=== PATIENT | male | born 1970 | race Two or more races ===

== ENCOUNTER 2019-05-28 09:42 | Inpatient (IN) | payer OTHER ==
[~2019-05-28] VITALS: Ht 175.3 cm; Wt 78.1 kg
[~2019-05-28 09:42] MED LIST: ATOR20TA37 PO; BACITRACIN 50,000 UNIT ONE; EPINEPHRINE 1 MG/ML, 1ML ONE; LOSA25TA25 PO; THROMBIN 5,000 UNIT VIAL TP ONE; VANCOMYCIN 1,000 MG ONE
[2019-05-28] MEDS ORDERED: LACTATED RINGERS 1,000 ML IV SCH (10:14)
[2019-05-28 10:17] VITALS: BP 148/89
[2019-05-28] MEDS ORDERED: MIDAZOLAM 1 MG/ML, 2ML ONE (11:23)
[2019-05-28] MEDS ORDERED: FENTANYL PF 250 MCG/5ML ONE (11:23)
[2019-05-28] MEDS ORDERED: DEXAMETHASONE 4 MG/ML, 1ML ONE (12:31)
[2019-05-28] MEDS ORDERED: SUCCINYLCHOLINE 20 MG/ML, 10ML ONE (12:31)
[2019-05-28] MEDS ORDERED: METOPROLOL 1 MG/ML, 5ML ONE (12:31)
[2019-05-28] MEDS ORDERED: ROCURONIUM 10 MG/ML,10ML ONE (12:31)
[2019-05-28] MEDS ORDERED: CEFAZOLIN 1,000 MG ONE (12:31)
[2019-05-28] MEDS ORDERED: PROPOFOL 10 MG/ML, 20ML ONE (12:31)
[2019-05-28] MEDS ORDERED: ONDANSETRON 2MG/ML, 2ML ONE ×2 (12:31→14:56)
[2019-05-28] MEDS ORDERED: BUPIVACAINE/PF 0.5% INFIL ONE (13:09)
[2019-05-28] MEDS ORDERED: THROMBIN 5,000 UNIT VIAL TP ONE (13:10)
[2019-05-28] MEDS ORDERED: PROMETHAZINE 25 MG/ML, 1ML IV PRN (13:30)
[2019-05-28] MEDS ORDERED: OXYcodone 5 MG/5 ML ORAL.SOL UDC PO PRN (13:30)
[2019-05-28] MEDS ORDERED: LABETALOL 5MG/ML, 20ML IV PRN (13:30)
[2019-05-28] MEDS ORDERED: METOCLOPRAMIDE 5 MG/ML, 2ML IV PRN (13:30)
[2019-05-28] MEDS ORDERED: MEPERIDINE/PF 25MG/0.5ML IVPush PRN (13:30)
[2019-05-28] MEDS ORDERED: KETOROLAC 30 MG/1 ML IV PRN (13:30)
[2019-05-28] MEDS ORDERED: ONDANSETRON 2MG/ML, 2ML IVPush PRN (13:30)
[2019-05-28] MEDS ORDERED: hydrALAzine 20 MG/ML, 1ML IV PRN (13:30)
[2019-05-28] MEDS ORDERED: ALBUTEROL SULFATE 2.5 MG/3 ML NPPB PRN (13:30)
[2019-05-28] MEDS ORDERED: FENTANYL PF 100 MCG/2ML ONE (14:59)
[2019-05-28] MEDS ORDERED: OXYcodone 5 MG/5 ML ORAL.SOL UDC ONE (14:59)
[2019-05-28] MEDS: FENTANYL PF 100 MCG/2ML IV PRN ×2 (15:00→15:10)
[2019-05-28] MEDS ORDERED: HYDROmorphone 1 MG/ML, 1ML VIAL ONE (15:24)
[2019-05-28] MEDS: HYDROmorphone 1 MG/ML, 1ML INJ IV PRN ×2 (15:30→15:45)
[2019-05-28] MEDS ORDERED: METHOCARBAMOL 1,000 MG in DEXTROSE 5% 100 ML IV ONE (15:30)
[2019-05-28] MEDS ORDERED: PROMETHAZINE 25 MG/ML, 1ML ONE (16:10)
[2019-05-28 16:39] VITALS: BP 128/80
[2019-05-28] MEDS ORDERED: DIPHENHYDRAMINE 50 MG/ML, 1ML IVPush PRN (17:30)
[2019-05-28] MEDS ORDERED: BISACODYL 10 MG SUPP PR PRN (17:30)
[2019-05-28] MEDS ORDERED: HYDROmorphone 2 MG/ML, 1ML IVPush PRN (17:30)
[2019-05-28] MEDS ORDERED: MAGNESIUM HYDROXIDE 8%, 30ML UDC PO PRN (17:30)
[2019-05-28] MEDS ORDERED: ONDANSETRON 2MG/ML, 2ML IV PRN (17:30)
[2019-05-28] MEDS ORDERED: HYDROcodone/APAP 10/325 MG TABLET PO PRN (17:30)
[2019-05-28] MEDS ORDERED: LORazepam 1MG TABLET PO PRN (17:30)
[2019-05-28] MEDS ORDERED: PROMETHAZINE 25 MG/ML, 1ML IM PRN (17:30)
[2019-05-28] MEDS: D5%-0.9% NACL+KCL 20MEQ 1,000 ML IV SCH (17:35)
[2019-05-28 19:23] VITALS: BP 134/81
[2019-05-28] MEDS: HYDROcodone/APAP 5/325 TABLET PO PRN (20:39)
[2019-05-28] MEDS: CEFAZOLIN PMX 1GM/50ML 50 ML IVPB SCH (20:40)
[2019-05-28] MEDS ORDERED: ZOLPIDEM 5MG TABLET PO PRN (21:00)
[2019-05-28] MEDS ORDERED: ATORVASTATIN 20 MG TABLET PO SCH (21:00)
[2019-05-29 00:10] VITALS: BP 115/70
[2019-05-29] MEDS: METHOCARBAMOL 750 MG TABLET PO SCH ×2 (00:27→08:55)
[2019-05-29] MEDS: HYDROcodone/APAP 5/325 TABLET PO PRN ×2 (00:27→04:35)
[2019-05-29] MEDS: D5%-0.9% NACL+KCL 20MEQ 1,000 ML IV SCH (01:34)
[2019-05-29 03:33] VITALS: BP 112/70
[2019-05-29] MEDS: CEFAZOLIN PMX 1GM/50ML 50 ML IVPB SCH (04:34)
[2019-05-29 04:50] LABS: BASOPHILS # (AUTO) 0.03 x10^3/uL (0-0.1); BASOPHILS % (AUTO) 0 % (0-1); EOSINOPHILS # (AUTO) 0.01 x10^3/uL (0-0.4); EOSINOPHILS % (AUTO) 0 % (1-7); LYMPHOCYTES # (AUTO) 1.83 x10^3/uL (1-3.4); LYMPHOCYTES % (AUTO) 18 % (22-44); MD NO; MEAN CORPUSCULAR HEMOGLOBIN 29.8 pg (27.5-34.5); MEAN CORPUSCULAR HGB CONC 33.1 g/dL (33.2-36.2); MEAN CORPUSCULAR VOLUME 90.2 fL (81-97); MEAN PLATELET VOLUME 7.8 fL (7.4-10.4); MONOCYTES # (AUTO) 0.64 x10^3/uL (0.2-0.8); MONOCYTES % (AUTO) 6 % (2-9); NEUTROPHILS # (AUTO) 7.67 x10^3/uL (1.8-6.8); NEUTROPHILS % (AUTO) 75 % (42-75); PLATELET COUNT 209 x10^3/uL (130-400); RED BLOOD COUNT 4.73 x10^6/uL (4.38-5.82); RED CELL DISTRIBUTION WIDTH 13.1 % (9.4-14.8)
[2019-05-29 05:02] LABS: ANION GAP 6 mmol/L (5-15); CALCIUM 8.1 mg/dL (8.5-10.1); CHLORIDE 108 mmol/L (98-107)
[2019-05-29 05:03] LABS: CREATININE 0.84 mg/dL (0.7-1.3)
[2019-05-29] MEDS ORDERED: ENOXAPARIN 40 MG/0.4 ML SQ SCH (06:00)
[2019-05-29 07:31] VITALS: BP 122/78
[2019-05-29] MEDS: LOSARTAN 25MG TABLET PO SCH ×2 (08:56→10:07)
[2019-05-29] MEDS ORDERED: SENNA/DOCUSATE TABLET PO SCH (09:00)
[2019-05-29] MEDS ORDERED: HYDR-36 PO (09:35)
[2019-05-29] MEDS ORDERED: CYCL-259 PO (09:36)
[2019-05-29 10:05] VITALS: BP 136/85
== END 2019-05-29 11:35 | disposition home or self-care (01) | DRG 455 ==
LOC: OUT 09:42 → 4NE 16:50 → OUT 16:53 → DCLOUNGE 05-29 11:21
PROVIDERS: ADMIT Neurological Surgery; ATTEND Neurological Surgery
PROC: 0SG3071 Fusion of Lumbosacral Joint with Autologous Tissue Substitute, Posterior Approach, Posterior Column, Open Approach (ICD-10-PCS; 2019-05-28)
PROC: 01NB0ZZ Release Lumbar Nerve, Open Approach (ICD-10-PCS; 2019-05-28)
PROC: 01NR0ZZ Release Sacral Nerve, Open Approach (ICD-10-PCS; 2019-05-28)
PROC: 0SB40ZZ Excision of Lumbosacral Disc, Open Approach (ICD-10-PCS; 2019-05-28)
PROC: 0SG30AJ Fusion of Lumbosacral Joint with Interbody Fusion Device, Posterior Approach, Anterior Column, Open Approach (ICD-10-PCS; principal; 2019-05-28 12:00)
DX: M48.07 Spinal stenosis, lumbosacral region (principal); M51.16 Intervertebral disc disorders with radiculopathy, lumbar region; M51.37 Other intervertebral disc degeneration, lumbosacral region; I10 Essential (primary) hypertension; E78.00 Pure hypercholesterolemia, unspecified
CPT/HCPCS: 36415; 72100; S0020; 80048; 85025; C1713; C1767; C1776; G0378; J0171; J0690; J1100; J1170; J1650; J2250; J2405; J2550; J2704; J3010; J3370; C1763; C1769; J0330; J2800; J3480; J7120

== ENCOUNTER 2020-07-05 10:54 | Emergency (ER) | payer OTHER ==
[~2020-07-05] VITALS: Ht 177.8 cm; Wt 73.8 kg
[~2020-07-05 10:54] MED LIST changes: -BACITRACIN 50,000 UNIT ONE; +CYCL-259 PO; -EPINEPHRINE 1 MG/ML, 1ML ONE; +HYDR-3246 PO; -THROMBIN 5,000 UNIT VIAL TP ONE; -VANCOMYCIN 1,000 MG ONE
[2020-07-05] MEDS ORDERED: SODIUM CHLORIDE 0.9% 1,000ML IVBOLUS ONE (11:30)
[2020-07-05] MEDS ORDERED: MECLIZINE CHEWABLE 25 MG TAB PO ONE (11:30)
[2020-07-05] MEDS ORDERED: ONDANSETRON 2MG/ML, 2ML IVPush ONE (11:30)
[2020-07-05] MEDS ORDERED: HYDROmorphone 1 MG/ML, 1ML INJ IV ONE (11:30)
[2020-07-05] MEDS ORDERED: MECLIZINE CHEWABLE 25 MG TAB ONE (11:33)
[2020-07-05] MEDS ORDERED: ONDANSETRON 2MG/ML, 2ML ONE (11:33)
[2020-07-05] MEDS ORDERED: HYDROmorphone 1 MG/ML, 1ML INJ ONE (11:33)
--- NOTE | 2020-07-05 11:41 | NUR ---
PIV PLACED, LABS DRAWN. IVF RUNNING. MEDS ADMIN PER AUG. XRAY COMPLETE. EKG DONE. PT AWARE OF NEED FOR URINE SAMPLE.
--- NOTE | 2020-07-05 12:11 | NUR ---
PT AMBULATED TO RESTROOM WITH STEADY GAIT TO PROVIDE URINE SAMPLE. UA COLLECTED AND SENT WITH PLATEN PRESS OPERATOR.
[2020-07-05 12:18] LABS: MICROSCOPIC NOT IND
[2020-07-05 12:23] LABS: BASOPHILS % (AUTO) 0 % (0-1); EOSINOPHILS % (AUTO) 0 % (1-7); LYMPHOCYTES % (AUTO) 17 % (22-44); MD NO; MEAN CORPUSCULAR HEMOGLOBIN 29.5 pg (27.5-34.5); MEAN CORPUSCULAR HGB CONC 34.1 g/dL (33.2-36.2); MEAN PLATELET VOLUME 8.1 fL (7.4-10.4); MONOCYTES % (AUTO) 3 % (2-9); NEUTROPHILS % (AUTO) 81 % (42-75); PLATELET COUNT 239 x10^3/uL (130-400); RED BLOOD COUNT 5.57 x10^6/uL (4.38-5.82); RED CELL DISTRIBUTION WIDTH 13.4 % (9.4-14.8)
[2020-07-05 12:28] LABS: ALBUMIN 4.2 g/dL (3.4-5.0); ANION GAP 4 mmol/L (5-15); CHLORIDE 104 mmol/L (98-107)
--- NOTE | 2020-07-05 12:34 | NUR ---
MD AT BEDSIDE TO UPDATE PT ON POC.
[2020-07-05 12:35] LABS: CREATININE 1.06 mg/dL (0.7-1.3); TROPONIN I < 0.015 ng/mL (0.000-0.045)
--- NOTE | 2020-07-05 12:54 | NUR ---
MUMTAZD TO CONSULT WITH NEUROSURGERY.
--- NOTE | 2020-07-05 12:57 | NUR ---
MUMTAZD AT BEDSIDE TO UPDATE PT ON CONSULT. N/O RECEIVED FOR MRI.
[2020-07-05] MEDS ORDERED: SODIUM CHLORIDE FLUSH 10ML SYR IVF PRN (13:30)
--- NOTE | 2020-07-05 13:42 | NUR ---
PT AT MRI.
[2020-07-05] MEDS ORDERED: GADOTERATE 7.5 MMOL/15 ML VIAL ONE (13:44)
--- NOTE | 2020-07-05 14:40 | NUR ---
REPORT GIVEN TO CASSIDY VU.
--- NOTE | 2020-07-05 15:22 | NUR ---
KOFFI RN: PT RESTING IN ROOM. FAMLIY AT BEDSIDE. VS STABLE. CALL LIGHT IN PLACE.
--- NOTE | 2020-07-05 16:15 | NUR ---
HOSPITALIST OK FOR PT TO EAT. DIET TRAY ORDERED.
--- NOTE | 2020-07-05 16:34 | NUR ---
Break RN note: Awaiting arrival of meal tray. Pt resting in bed, BORA.
--- NOTE | 2020-07-05 17:13 | NUR ---
MEAL TRAY DELIVERED.
--- NOTE | 2020-07-05 17:34 | NUR ---
GAVE REPORT TO HONG FROM [facility]. PT ACCEPTED. AWAITING BED ASSIGNMENT.
--- NOTE | 2020-07-05 17:42 | NUR ---
SW AT BEDSIDE TO UPDATE PT AND ON POC. PT ACCEPTED TO [facility], AWAITING TRANSPORTATION AT THIS TIME. HOSPITAL BED REQUESTED. PT DENIES NEEDS AT THIS TIME.
--- NOTE | 2020-07-05 18:11 | NUR ---
PT TRANSFERRED TO HOSPITAL BED. AT BEDSIDE.
--- NOTE | 2020-07-05 20:25 | NUR ---
PT RESTING COMFORTABLY ON HOSPITAL BED. NO NEURO CHANGES. AT BEDSIDE. AWAITING TRANSPORT TO [facility].
--- NOTE | 2020-07-05 22:13 | NUR ---
REPORT GIVEN TO RAI CANALES RN. REPORT GIVEN TO [facility] [place], GILMA VU.
[2020-07-05 22:17] VITALS: BP 136/87
--- NOTE | 2020-07-05 22:58 | NUR ---
PT TRANSPORTED TO [facility] VIA [facility].
== END 2020-07-05 23:03 | disposition other institution (70) ==
LOC: ED 12:11 → UNDOADMIN 13:22 → EDIP 13:22 → ED 22:57
DX: R42 Dizziness and giddiness (principal); G91.0 Communicating hydrocephalus; E78.00 Pure hypercholesterolemia, unspecified; R51.9 Headache, unspecified; R07.89 Other chest pain; Z20.822 Contact with and (suspected) exposure to COVID-19
CPT/HCPCS: 36415; 70450; 70553; 71045; 80048; 81003; 82040; 83880; 84484; 85025; 87635; 93005; 96361; 96374; 96375; 99285; A9575; J1170; J2405; J7030

== ENCOUNTER → 2020-07-21 | Outpatient (CLI) | payer OTHER | END | disposition home or self-care (01) | LOC: RAD 17:27 | PROVIDERS: ATTEND Physician Assistant Surgical | DX: G91.9 Hydrocephalus, unspecified (principal) | CPT/HCPCS: 70450 ==

== ENCOUNTER → 2020-09-02 | Outpatient (CLI) | payer OTHER ==
[~2020-09-02] MED LIST changes: -CYCL-259 PO; +CYCL10TA2 PO; +GADOTERATE 7.5 MMOL/15ML SYR ONE; -HYDR-3246 PO; +HYDR-3248 PO
== END | disposition home or self-care (01) ==
LOC: RAD 11:04
PROVIDERS: ATTEND Psychiatry & Neurology Neurology
DX: I63.511 Cerebral infarction due to unspecified occlusion or stenosis of right middle cerebral artery (principal); I63.512 Cerebral infarction due to unspecified occlusion or stenosis of left middle cerebral artery; A87.9 Viral meningitis, unspecified; H40.013 Open angle with borderline findings, low risk, bilateral; H50.21 Vertical strabismus, right eye; H49.13 Fourth [trochlear] nerve palsy, bilateral; H51.11 Convergence insufficiency; H53.2 Diplopia
CPT/HCPCS: 70553; A9575